=== PATIENT | male | born 1985 | race Caucasian/White ===

== ENCOUNTER 2018-05-03 16:37 | Emergency (ER) | payer OTHER ==
[~2018-05-03] VITALS: Ht 167.6 cm; Wt 74.8 kg
[2018-05-03 16:45] VITALS: BP 120/82
--- NOTE | 2018-05-03 16:45 | NUR ---
ED Nurse Note: PT WALKED IN TO ER TODAY FROM HOME. AOX4. PT C/O LEFT WRIST PAIN, 04/22 THAT RADIATES TO LEFT ELBOW AND CHEST X 15 MINUTES YESTERDAY. PT STATES SAME SYMPTOMS RETURNED ABOUT 1.5 HOURS AGO. PT DENIES DIZZINESS OR HEADACHE. PT DENIES ANY OTHER SYMPTOMS.
[2018-05-03] MEDS ORDERED: ABSORICA PO (16:46)
--- NOTE | 2018-05-03 16:56 | Emergency Room Report ---
History of Present Illness General Chief Complaint: Chest Pain Source: Patient Present Illness HPI This is a very pleasant 31-year-old male who complains of chest pain that started yesterday and last for several seconds and resolved on its own. She also complains of a numbness feeling on the left wrist. No radiation. No other associated symptoms. 2 episodes in total. No previous history of this before. Denies any symptoms currently. He denies any trauma. Allergies: Coded Allergies: No Known Allergies (Unverified , 05/03/18) Patient History Past Medical History: none Past Surgical History: none Pertinent Family History: none Nursing Documentation-[facility] Past Medical History: No Stated History Review of Systems All Other Systems: negative except mentioned in HPI Physical Exam Vital Signs Date Time Temp Pulse Resp B/P (MAP) Pulse Ox O2 Delivery O2 Flow Rate FiO2 05/03/18 16:41 97.5 71 18 122/80 99 Room Air General Appearance: well appearing, no apparent distress Head: normocephalic, atraumatic ENT: hearing grossly normal, normal voice Neck: full range of motion, supple Respiratory: no respiratory distress, speaking full sentences Gastrointestinal: normal inspection, non tender, soft, no mass Musculoskeletal: no calf tenderness Neurologic: alert, normal gait Psychiatric: mood/affect normal Skin: no rash Lymphatic: normal inspection Medical Decision Making Diagnostic Impression: Primary Impression: Chest pain ER Course Patient presented significant complexity respiratory however, the patient's symptoms are very atypical. I did consider acute coronary syndrome, pneumonia, pneumothorax, aortic dissection. Chest x-ray was reviewed. EKG was reviewed as well. The patient is not tachypnea, tachycardic, hypoxic. The patient is alert. He has no symptoms at this time. He has no significant risk factors for acute coronary syndrome. The patient will be discharged home and to follow up with his primary care physician as an outpatient. To return if there is any change in symptoms or new symptoms or recurrent symptoms. EKG Diagnostic Results EKG Time: 16:55 Rate: normal Rhythm: NSR ST Segments: no acute changes Last Vital Signs Date Time Temp Pulse Resp B/P (MAP) Pulse Ox O2 Delivery O2 Flow Rate FiO2 05/03/18 16:41 97.5 71 18 122/80 99 Room Air Disposition: HOME, SELF-CARE Condition: Stable Patient Instructions: Nonspecific Chest Pain NORBERT MUELLER May 03, 2018 16:56
--- NOTE | 2018-05-03 17:19 | NUR ---
ED Nurse Note: XRAY AT BEDSIDE.
[2018-05-03 18:09] VITALS: BP 107/77
--- NOTE | 2018-05-03 18:11 | NUR ---
ED Nurse Note: PT LAYING PEACEFULLY IN BED IN NAD. AOX4. DISCHARGE PAPERWORK EXPLAINED TO PT. PT VERBALIZES UNDERSTANDING AND ALL QUESTIONS WERE ANSWERED. DISCHARGE PAPERWORK GIVEN TO PT AND ID WRISTBAND REMOVED. PT WALKED OUT OF ER WITH STEADY GAIT AND ALL BELONGINGS.
--- NOTE | 2018-05-04 10:17 | Diagnostic Imaging Report ---
Indication: Chest pain Technique: One view of the chest Comparison: none Findings: Lungs and pleural spaces are clear. Heart size is normal Impression: No acute process
--- NOTE | 2018-05-04 12:41 | Cardiology Report ---
APPROVED REPORT EKG Measurement Heart [id number] Normal sinus rhythm Normal ECG
== END 2018-05-03 18:11 | disposition home or self-care (01) ==
LOC: EMR 17:34
DX: R07.9 Chest pain, unspecified (principal); R20.0 Anesthesia of skin
CPT/HCPCS: 71045; 93005; 99283